=== PATIENT | male | born 1975 | race Hispanic/Latino ===

== ENCOUNTER 2016-11-17 16:47 | Emergency (ER) | payer BC ==
[~2016-11-17] VITALS: Ht 172.7 cm; Wt 118.0 kg
[~2016-11-17 16:47] MED LIST: ATORVASTATIN CA40 MG PO; BACTRIM,SEPT1 TABLET PO; CIPRO750 MG PO; GLIMEPIRIDE2 MG PO; GLUCOPHAGE500 MG PO; HUMALOG100 UNIT/2 SC; LANTUS 3 M100 UNITS1 SC; LEVEMIR100 UNIT/2 SC; LISINOPRIL5 MG PO; LO-DOSE ASPIRIN81 M2 PO; MEN'S MULTI-VI1 EACH PO; METFORMIN HCL1000 MG PO; MOTRIN800 MG PO; NORCO 5/3251 TABLET PO; NOVOLOG PE100 UNITS/ SC; PEN-VEE K,VEET500 MG PO; PERCOCET 5/31 TABLET PO
[2016-11-17] MEDS ORDERED: KEFLEX500 MG PO (17:40)
[2016-11-17] MEDS ORDERED: BACTROBAN CREAM15 GM TP (17:40)
[2016-11-17 17:50] VITALS: BP 148/79
== END 2016-11-17 17:50 | disposition home or self-care (01) ==
LOC: EME 16:47
DX: S80.812A Abrasion, left lower leg, initial encounter (principal); L03.116 Cellulitis of left lower limb; X58.XXXA Exposure to other specified factors, initial encounter; Y93.H2 Activity, gardening and landscaping; Y92.007 Garden or yard of unspecified non-institutional (private) residence as the place of occurrence of the external cause; I10 Essential (primary) hypertension; E11.9 Type 2 diabetes mellitus without complications; Z79.4 Long term (current) use of insulin; Z87.891 Personal history of nicotine dependence
CPT/HCPCS: 99281; 99284